=== PATIENT | male | born 1970 | race Asian ===

== ENCOUNTER 2021-02-03 15:53 | Emergency (ER) | payer SELFPAY ==
[~2021-02-03] VITALS: Ht 167.6 cm; Wt 72.6 kg
[~2021-02-03 15:53] MED LIST: FLUORESCEIN SODIUM 1 MG OPHTHALMIC STRIP OP ONE; PROPARACAINE (OPTHANINE 0.5%) 15 ML DROPS OP ONE
[2021-02-03 16:01] VITALS: BP_SYST 165
--- NOTE | 2021-02-03 16:01 | NUR ---
ER DR. FRANCO AT THE BEDSIDE EXAMINING PT
--- NOTE | 2021-02-03 16:01 | NUR ---
Patient to ER bed 07 to gown for evaluation. Side rails up.
--- NOTE | 2021-02-03 16:10 | NUR ---
PT CAME IN FROM HOME C/O LEFT EYE REDNESS, STATES THAT WHILE OPENING HIS UMBRELLA HE POKED HIS EYE MAKING IT RED. PT STATES HE SAW SOME BLOOD. DENIES PAIN. DENIES ANY VISUAL CHANGES. AAX4, V/S STABLE
[2021-02-03 16:34] VITALS: BP_SYST 165
--- NOTE | 2021-02-03 16:35 | NUR ---
Patient given written and verbal discharge instructions and verbalizes understanding. ER MD discussed with patient the results and treatment provided. Patient in stable condition. ID arm band removed. NO Rx given. Patient educated on pain management and to follow up with PMD. Pain Scale 0/10. Opportunity for questions provided and answered. Medication side effect fact sheet provided.
== END 2021-02-03 16:34 | disposition home or self-care (01) ==
LOC: SED 15:53
DX: H11.32 Conjunctival hemorrhage, left eye (principal)
CPT/HCPCS: 99283